=== PATIENT | female | born 1990 | race American Indian/Alaskan Native ===

== ENCOUNTER 2017-11-25 18:29 | Emergency (ER) | payer OTHER, MEDICAID ==
[2017-11-25 19:23] LABS: Hematocrit 39.3 % (30.3-42.9); Hemoglobin 13.7 gm/dl (10.1-14.3); Mean Corpuscular HGB Conc 35 % (30-34); Mean Corpuscular Hemoglobin 34 pg (28-32); Mean Corpuscular Volume 99 fl (79-97); Platelet Count 215 K/mm3 (140-440); Red Blood Count 3.98 M/mm3 (3.65-5.03); Red Cell Distribution Width 13.3 % (13.2-15.2)
[2017-11-25 19:42] LABS: Alanine Aminotransferase 16 units/L (7-56); Albumin 4.7 g/dL (3.9-5); BUN/Creatinine Ratio 18; Blood Urea Nitrogen 11 mg/dL (7-17); Calcium 9.8 mg/dL (8.4-10.2); Hemolysis Index 5
[2017-11-25 20:43] LABS: Basophils % (Manual) 0 % (0.0-1.8); Eosinophils % (Manual) 0 % (0.0-4.3); Monocytes % (Manual) 0 % (0.0-7.3); Total Cells Counted 100
[2017-11-25 20:44] LABS: Large Platelets Few; Macrocytosis 1+; Platelet Estimate Appe
[2017-11-25] MEDS ORDERED: ZOFRAN IV ONE (21:16)
[2017-11-25] MEDS ORDERED: NACL 0.9% 1000 ML 1,000 ML IV ONE (21:16)
[2017-11-25] MEDS ORDERED: ATIVAN IV ONE (21:17)
[2017-11-25 21:40] LABS: Bilirubin,Urine NEG (Negative); Blood,Urine NEG (Negative); Color,Urine Yellow (Yellow); Mucus,Urine 2+ /HPF; Urobilinogen,Urine < 2.0 mg/dL (<2.0)
--- NOTE | 2017-11-25 21:45 | Emergency Department Report ---
ED Anxiety HPI - General Chief Complaint: Anxiety Stated Complaint: DIFFICULTY BREATHING Time Seen by Provider: 11/25/17 21:10 Source: patient Mode of arrival: Wheelchair - History of Present Illness Initial Comments: Patient denies any suicidal or homicidal ideation. She says she does not normally drink alcohol but was at a [employer] and mixed a few alcoholic beverages drinks together. MD Complaint: anxiety -: Gradual Time: 02:00 Symptoms: extremity numbness Place: home Previous History of Same: No Severity: moderate Quality: constant Provoking factors: other (alcohol ingestion last night) Improves With: nothing Worsens With: nothing Associated symptoms: shortness of breath, nausea/vomiting (as been going on since 0200 today) - Related Data Home Medications: Previous Rx's Medication Instructions Recorded Last Taken Type Ondansetron [Zofran Odt] 4 mg PO Q8HR PRN #15 tab.rapdis 11/25/17 Unknown Rx Allergies/Adverse Reactions: Allergies Allergy/AdvReac Type Severity Reaction Status Date / Time No Known Allergies Allergy Unverified 11/25/17 18:32 ED Review of Systems ROS: Stated complaint: DIFFICULTY BREATHING Other details as noted in HPI Comment: All other systems reviewed and negative ED Past Medical Hx - Past Medical History Previous Medical History?: No - Surgical History Additional Surgical History: c/s - Social History Smoking Status: Current Some Day Smoker Substance Use Type: Alcohol - Medications Home Medications: Home Medications Medication Instructions Recorded Confirmed Last Taken Type Ondansetron [Zofran Odt] 4 mg PO Q8HR PRN #15 tab.rapdis 11/25/17 Unknown Rx ED Physical Exam - General Limitations: No Limitations General appearance: alert, anxious - Head Head exam: Present: atraumatic, normocephalic - Eye Eye exam: Present: normal appearance - ENT ENT exam: Present: mucous membranes moist - Neck Neck exam: Present: normal inspection - Respiratory Respiratory exam: Present: normal lung sounds bilaterally. Absent: respiratory distress - Cardiovascular Cardiovascular Exam: Present: regular rate, normal rhythm. Absent: systolic murmur, diastolic murmur, rubs, gallop - GI/Abdominal GI/Abdominal exam: Present: soft, normal bowel sounds. Absent: tenderness - Rectal Rectal exam: Present: deferred - Extremities Exam Extremities exam: Present: normal inspection - Back Exam Back exam: Present: normal inspection - Neurological Exam Neurological exam: Present: alert, oriented X3 - Psychiatric Psychiatric exam: Present: anxious - Skin Skin exam: Present: warm, dry, intact, normal color. Absent: rash ED Course Vital Signs 11/25/17 11/25/17 11/25/17 18:32 20:56 21:00 Temperature 98.7 F Pulse Rate 88 67 Respiratory 34 H 24 Rate Blood Pressure 115/37 119/68 126/70 O2 Sat by Pulse 99 100 100 Oximetry 11/25/17 11/25/17 11/25/17 21:15 21:31 21:45 Temperature Pulse Rate 77 66 57 L Respiratory 16 17 13 Rate Blood Pressure 133/73 133/73 119/59 O2 Sat by Pulse 100 Oximetry - Reevaluation(s) Reevaluation #1: 11/25/17 22:19 she feels better ED Medical Decision Making - Lab Data Result diagrams: 11/25/17 19:06 11/25/17 19:06 Critical care attestation.: If time is entered above; I have spent that time in minutes in the direct care of this critically ill patient, excluding procedure time. ED Disposition Clinical Impression: Alcohol abuse, Anxiety Disposition: DC-01 TO HOME OR SELFCARE Is pt being admited?: No Does the pt Need Aspirin: No Condition: Stable Instructions: Anxiety (ED), Abuse of Alcohol (ED) Additional Instructions: avoid alcohol Prescriptions: Ondansetron [Zofran Odt] 4 mg PO Q8HR PRN #15 tab.rapdis PRN Reason: Nausea And Vomiting Referrals: ANISA PRATT MD [Primary Care Provider] - 3-5 Days Time of Disposition: 22:21 Print Language: [place]
[2017-11-25 21:46] LABS: Amphetamine Screen,Urine PRESUMPTIVE NEGATIVE; Benzodiazepines Screen,Urine PRESUMPTIVE NEGATIVE; Cocaine Screen,Urine PRESUMPTIVE NEGATIVE; Methadone Screen,Urine PRESUMPTIVE NEGATIVE; Opiate Screen,Urine PRESUMPTIVE NEGATIVE
[2017-11-25 22:01] LABS: Cannabinoid Screen,Urine PRESUMPTIVE POSITIVE
[2017-11-25] MEDS ORDERED: K-DUR PO ONE (22:27)
[2017-11-25 22:56] VITALS: BP 113/52
== END 2017-11-25 22:59 | disposition home or self-care (01) ==
LOC: ED 18:29
DX: F41.9 Anxiety disorder, unspecified (principal); F17.200 Nicotine dependence, unspecified, uncomplicated
CPT/HCPCS: 36415; 80053; 80307; 81001; 84703; 85007; 85025; 96361; 96374; 99284; G0480; J2060; J2405; J7030; 80320

== ENCOUNTER 2018-12-13 23:16 | Emergency (ER) | payer OTHER ==
[2018-12-13 23:35] VITALS: BP 132/78
[2018-12-14 00:14] LABS: Basophils # (Auto) 0.1 K/mm3 (0.0-0.1); Basophils % (Auto) 1.3 % (0.0-1.8); Hematocrit 37.5 % (30.3-42.9); Lymphocytes # (Auto) 0.4 K/mm3 (1.2-5.4); Lymphocytes % (Auto) 5.4 % (13.4-35.0); Mean Corpuscular HGB Conc 35 % (30-34); Mean Corpuscular Volume 102 fl (79-97); Monocytes # (Auto) 0.3 K/mm3 (0.0-0.8); Monocytes % (Auto) 3.6 % (0.0-7.3); Platelet Count 231 K/mm3 (140-440); Red Blood Count 3.69 M/mm3 (3.65-5.03); Red Cell Distribution Width 13.7 % (13.2-15.2)
[2018-12-14 00:38] LABS: BUN/Creatinine Ratio 14; Blood Urea Nitrogen 11 mg/dL (7-17); Calcium 10.2 mg/dL (8.4-10.2); Hemolysis Index 4
[2018-12-14] MEDS ORDERED: REGLAN IV ONE (00:39)
[2018-12-14] MEDS ORDERED: ZOFRAN ODT PO ONE (00:39)
[2018-12-14] MEDS ORDERED: PEPCID IV ONE (00:40)
[2018-12-14] MEDS ORDERED: ZOFRAN ODT ONE (00:40)
[2018-12-14] MEDS ORDERED: NACL 0.9% 1000 ML 1,000 ML IV ONE (00:40)
[2018-12-14] MEDS ORDERED: VISTARIL PO ONE (02:16)
--- NOTE | 2018-12-14 02:26 | Emergency Department Report ---
ED General Adult HPI - General Chief complaint: Dyspnea/Respdistress Stated complaint: NV POSSIBLE PANIC ATTACK Time Seen by Provider: 12/14/18 00:30 Source: patient Mode of arrival: Ambulatory Limitations: No Limitations - History of Present Illness Initial comments: The patient is a 28-year-old [place] female with a history of chronic anxiety presents to the ED with a complaint of acute onset persistent nausea and vomiting with diffuse abdominal pain, shortness of breath, chest or tetanus and left numbness and tingling sensations for the last 4 hours. Patient states that all the symptoms began about 8 hours ago mildly and a lot worse the last 4 hours. Patient states that the nausea and vomiting have been intermittent and that she has had multiple episodes of nausea and vomiting and is unable to keep anything down. Patient denies fever, chills, diarrhea, dizziness, headache, chest pain, change in vision, dysuria, urinary frequency and urgency, vaginal bleeding or vaginal discharge and sore throat. MD Complaint: Nausea, vomiting, abdominal pain, shortness of breath, chest tightness -: Sudden, hour(s) (8) Location: chest, abdomen Radiation: non-radiation Severity scale (0 -10): 7 Quality: aching, constant Consistency: intermittent Improves with: none Worsens with: none Associated Symptoms: loss of appetite, malaise, nausea/vomiting, shortness of breath. denies: confusion, chest pain, cough, diaphoresis, headaches, rash, seizure, syncope, weakness Treatments Prior to Arrival: none - Related Data Previous Rx's Medication Instructions Recorded Last Taken Type hydrOXYzine PAMOATE [Vistaril] 50 mg PO Q6HR PRN #20 capsule 08/08/18 Unknown Rx Dicyclomine [Bentyl] 20 mg PO Q6H PRN #20 tablet 12/14/18 Unknown Rx Promethazine [Phenergan] 25 mg PO Q6HR PRN #24 tab 12/14/18 Unknown Rx cephALEXin [Keflex] 500 mg PO Q8H #30 cap 12/14/18 Unknown Rx hydrOXYzine PAMOATE [Vistaril] 50 mg PO Q6HR PRN #30 capsule 12/14/18 Unknown Rx Allergies Allergy/AdvReac Type Severity Reaction Status Date / Time No Known Allergies Allergy Unverified 11/25/17 18:32 ED Review of Systems ROS: Stated complaint: NV POSSIBLE PANIC ATTACK Other details as noted in HPI Comment: All other systems reviewed and negative Constitutional: no symptoms reported, see HPI, malaise. denies: chills, diaphoresis, fever, weakness Eyes: as per HPI. denies: eye pain, eye discharge, vision change ENT: as per HPI. denies: ear pain, throat pain, dental pain, epistaxis, congestion Respiratory: no symptoms reported, cough. denies: shortness of breath, SOB with exertion, SOB at rest, wheezing Cardiovascular: as per HPI. denies: chest pain, palpitations, dyspnea on exertion, syncope, paroxysmal nocturnal dyspnea Endocrine: no symptoms reported, see HPI. denies: increased hunger, increased thirst, increased urine, unexplained weight gain Gastrointestinal: as per HPI, abdominal pain, nausea, vomiting. denies: diarrhea, hematemesis, hematochezia Genitourinary: as per HPI. denies: urgency, dysuria, frequency Musculoskeletal: as per HPI, myalgia. denies: joint swelling Skin: as per HPI. denies: rash, change in color, change in hair/nails Neurological: as per HPI, headache. denies: numbness, paresthesias, confusion, abnormal gait, vertigo Psychiatric: as per HPI, anxiety. denies: auditory hallucinations, visual hallucinations, suicidal thoughts Hematological/Lymphatic: as per HPI ED Past Medical Hx - Past Medical History Previous Medical History?: No - Surgical History Past Surgical History?: Yes Additional Surgical History: c/s - Social History Smoking Status: Light Tobacco Smoker Substance Use Type: None - Medications Home Medications: Home Medications Medication Instructions Recorded Confirmed Last Taken Type hydrOXYzine PAMOATE [Vistaril] 50 mg PO Q6HR PRN #20 capsule 08/08/18 Unknown Rx Dicyclomine [Bentyl] 20 mg PO Q6H PRN #20 tablet 12/14/18 Unknown Rx Promethazine [Phenergan] 25 mg PO Q6HR PRN #24 tab 12/14/18 Unknown Rx cephALEXin [Keflex] 500 mg PO Q8H #30 cap 12/14/18 Unknown Rx hydrOXYzine PAMOATE [Vistaril] 50 mg PO Q6HR PRN #30 capsule 12/14/18 Unknown Rx ED Physical Exam - General Limitations: No Limitations General appearance: alert, in no apparent distress, anxious - Head Head exam: Present: atraumatic, normocephalic, normal inspection - Eye Eye exam: Present: normal appearance, PERRL, EOMI Pupils: Present: normal accommodation - ENT ENT exam: Present: normal exam, normal orophraynx, mucous membranes moist, TM's normal bilaterally, normal external ear exam - Neck Neck exam: Present: normal inspection, lymphadenopathy - Respiratory Respiratory exam: Present: normal lung sounds bilaterally. Absent: respiratory distress, wheezes, chest wall tenderness - Cardiovascular Cardiovascular Exam: Present: regular rate, normal rhythm, normal heart sounds - GI/Abdominal GI/Abdominal exam: Present: soft, hyperactive bowel sounds. Absent: tenderness, guarding, rebound - Rectal Rectal exam: Present: deferred - Extremities Exam Extremities exam: Present: normal inspection, full ROM, normal capillary refill - Back Exam Back exam: Present: normal inspection, full ROM. Absent: tenderness, CVA tenderness (R), CVA tenderness (L) - Neurological Exam Neurological exam: Present: alert, oriented X3, CN II-XII intact, normal gait, reflexes normal - Psychiatric Psychiatric exam: Present: anxious. Absent: homicidal ideation, suicidal ideation - Skin Skin exam: Present: warm, dry, intact, normal color ED Course Vital Signs 12/13/18 12/13/18 12/14/18 23:23 23:33 03:21 Temperature 98.1 F 98.7 F Pulse Rate 97 H 105 H 71 Respiratory 18 24 17 Rate Blood Pressure 126/69 132/78 O2 Sat by Pulse 100 99 100 Oximetry ED Medical Decision Making - Lab Data Result diagrams: 12/13/18 23:57 12/13/18 23:57 - Medical Decision Making Patient is alert and oriented 3 and is not in distress. Lab test results were reviewed and are unremarkable except for urinalysis that showed acute urinary tract infection. Patient was treated in the ED for nausea and vomiting, also given normal saline 1 L IV bolus. On reevaluation, patient's nausea and vomiting resolved in the ED as well as shortness of breath which was mainly due to anxiety and panic attack. Patient was discharged home after passing oral fluid challenge, and was given prescription for antiemetics, antacids and anxiolytics, and advised to follow up with her primary care physician in 3-5 days for reevaluation. Patient was advised to return to the ED immediately if symptoms got worse. - Differential Diagnosis Viral gastroenteritis, Anxiety/ Panic attack, Acute UTI, dehydration Critical care attestation.: If time is entered above; I have spent that time in minutes in the direct care of this critically ill patient, excluding procedure time. ED Disposition Clinical Impression: Anxiety as acute reaction to exceptional stress, Nausea and vomiting in adult, Acute urinary tract infection Disposition: TO HOME OR SELFCARE Is pt being admited?: No Does the pt Need Aspirin: No Condition: Stable Instructions: Urinary Tract Infection in Women (ED), Generalized Anxiety Disorder (ED), Acute Nausea and Vomiting (ED) Prescriptions: Dicyclomine [Bentyl] 20 mg PO Q6H PRN #20 tablet PRN Reason: Pain , Severe (7-10) cephALEXin [Keflex] 500 mg PO Q8H #30 cap Promethazine [Phenergan] 25 mg PO Q6HR PRN #24 tab PRN Reason: Nausea hydrOXYzine PAMOATE [Vistaril] 50 mg PO Q6HR PRN #30 capsule PRN Reason: Anxiety Referrals: MERCEDEZ ARGUETA MD [Primary Care Provider] - 3-5 Days Forms: Work/School Release Form(ED) Time of Disposition: 03:09 Print Language: [place]RA[place]
[2018-12-14 02:59] LABS: Bilirubin,Urine NEG (Negative); Blood,Urine NEG (Negative); Color,Urine Amber (Yellow); Mucus,Urine 3+ /HPF; Urobilinogen,Urine < 2.0 mg/dL (<2.0)
[2018-12-14 03:03] LABS: Bacteria,Urine 1+ /HPF (Negative)
[2018-12-14 03:41] LABS: Amphetamine Screen,Urine PRESUMPTIVE NEGATIVE; Benzodiazepines Screen,Urine PRESUMPTIVE NEGATIVE; Cocaine Screen,Urine PRESUMPTIVE NEGATIVE; Methadone Screen,Urine PRESUMPTIVE NEGATIVE; Opiate Screen,Urine PRESUMPTIVE NEGATIVE
[2018-12-14 04:04] LABS: Cannabinoid Screen,Urine PRESUMPTIVE POSITIVE
== END 2018-12-14 03:21 | disposition home or self-care (01) ==
LOC: ED 23:16
DX: N39.0 Urinary tract infection, site not specified (principal); F41.1 Generalized anxiety disorder; F43.0 Acute stress reaction; R11.2 Nausea with vomiting, unspecified
CPT/HCPCS: 36415; 80048; 80307; 81001; 83690; 85025; 96361; 96374; 96375; 99283; J2765; J7030; Q0162; Q0177